=== PATIENT | male | born 1960 | race African-American/Black ===

== ENCOUNTER 2016-11-20 12:27 | Emergency (ER) | payer BC ==
[~2016-11-20] VITALS: Ht 188 cm; Wt 104.0 kg
[~2016-11-20 12:27] MED LIST: ASPIR 8181 M1 PO; MELOXICAM7.5 MG PO; METAXALONE800 MG PO; MOTRIN800 MG PO; NOHOMEMEDS; SIMVASTATIN40 MG PO; SKELAXIN800 MG PO
[2016-11-20 15:38] LABS: MCH 28.9 PG (29.0-34.0); MCV 85.1 FL (86-99); MEAN PLAT.VOLUME 10.9 uM^3 (9.0-12.4); PLATELET COUNT 206 K/uL (156-360); RBC DIS.WIDTH-CV 13.8 % (11.8-14.6); RBC DIS.WIDTH-SD 42.3 % (39-53); RED BLOOD COUNT 5.05 M/uL (4.00-5.50); WHITE BLOOD COUNT 7.2 K/uL (4.1-10.2)
[2016-11-20 15:49] LABS: CHLORIDE 107 mEq/L (99-109); POTASSIUM 3.9 mEq/L (3.7-5.4); SODIUM 141 mEq/L (136-147)
[2016-11-20 15:50] LABS: GLUCOSE 110 mg/dL (70-99)
[2016-11-20 15:52] LABS: ANION GAP 9 MEQ/L (2-14)
[2016-11-20 15:54] LABS: GFR ESTIMATE (CALCULATED) > 59 mL/min/
[2016-11-20 15:55] LABS: UREA NITROGEN (BUN) 13 mg/dL (9-23)
[2016-11-20 16:54] LABS: INFLUENZA A VIRAL ANTIGEN NEGATIVE; INFLUENZA B VIRAL ANTIGEN NEGATIVE
[2016-11-20] MEDS ORDERED: DOXYCYCLINE HY100 MG PO (17:44)
[2016-11-20] MEDS ORDERED: HYCODAN SYRUP480 ML PO (17:44)
[2016-11-20] MEDS ORDERED: PREDNISONE50 MG PO (17:44)
[2016-11-20 18:24] VITALS: BP 122/92
== END 2016-11-20 18:25 | disposition home or self-care (01) ==
LOC: EME 12:27
PROVIDERS: Emergency Medicine
DX: J06.9 Acute upper respiratory infection, unspecified (principal); E78.5 Hyperlipidemia, unspecified; Z79.82 Long term (current) use of aspirin
CPT/HCPCS: 71020; 80048; 85027; 87502; 93005; 99281; 99285; J7030; J7512